=== PATIENT | female | born 1985 | race Caucasian/White ===

== ENCOUNTER 2016-06-11 00:07 | Inpatient (IN) | payer OTHER ==
[~2016-06-11] VITALS: Ht 167.6 cm; Wt 85.7 kg
[~2016-06-11 00:07] MED LIST: CHOL100045 PO; FERR-83 PO; PREN1TAB80 PO
[2016-06-11] MEDS ORDERED: Lactated Ringer's 1,000 ML IV PRN ×2 (11:54→13:06)
[2016-06-11] MEDS ORDERED: Methylergonovine 0.2 mg/mL Inj IM PRN ×3 (11:55→22:35)
[2016-06-11] MEDS ORDERED: Sodium Chloride LOK Flush 10 mL Syringe IVFLUSH PRN ×2 (11:55→13:10)
[2016-06-11] MEDS ORDERED: Oxytocin 10 Unit/mL Inj IM PRN ×3 (11:55→22:35)
[2016-06-11] MEDS ORDERED: Oxytocin 30 Units/500 mL LR 30 UNITS in IV Premix 1 EACH IV PRN ×2 (11:55→13:10)
[2016-06-11] MEDS ORDERED: Hemorrhage Kit, Post Partum XX ONE ×3 (11:55→22:35)
[2016-06-11] MEDS ORDERED: Carboprost 250 mCg/mL Inj IM PRN ×3 (11:55→22:35)
[2016-06-11] MEDS: Lactated Ringer's 1,000 ML IV SCH ×2 (12:38→17:44)
[2016-06-11 13:03] LABS: Mean Corpuscular Hemoglobin 32.7 pg (27.0-35.0); Mean Corpuscular Volume 96.9 fL (81-100)
[2016-06-11] MEDS ORDERED: Penicillin G K Inj 5,000,000 UNITS in Dextrose 5% Minibag Plus 100 ML IV ONE (13:10)
[2016-06-11] MEDS ORDERED: Vancomycin Inj 1,000 MG in IV Premix 1 EACH IV SCH (17:00)
[2016-06-11] MEDS ORDERED: fentaNYL-PF 50 mCg/mL 2 mL Inj ONE (17:35)
[2016-06-11] MEDS ORDERED: fentaNYL 2 mCg/mL-Bupiv 0.125% 100 ML EPIDURAL SCH (17:45)
[2016-06-11] MEDS ORDERED: Atropine 1 mg/10 mL (Code) Syringe IVPUSH PRN (17:45)
[2016-06-11] MEDS ORDERED: EPHEDrine Sulfate 50 mg/mL Inj IVPUSH PRN (17:45)
[2016-06-11] MEDS ORDERED: Ondansetron 2 mg/mL 2 mL Inj IVPUSH PRN (17:45)
[2016-06-11] MEDS ORDERED: Lactated Ringer's 500 ML IV ONE (17:45)
[2016-06-11] MEDS ORDERED: Lactated Ringer's 1,000 ML IV SCH (17:45)
--- NOTE | 2016-06-11 18:58 | HP ---
[address] [address] HISTORY AND PHYSICAL PATIENT: DEVORAH PRUETT : 1985 MR#: [id number] ADMIT: 06/11/2016 JOB ID: [id number] DATE: 06/11/2016 HISTORY OF PRESENT ILLNESS: This is a 31-year-old female, 2, para 1. She is at 39 weeks . She came in this morning for scheduled elective induction of labor. Today, she is 39 weeks plus 5 days. She started care in the first trimester and transferred to [facility] at 20 weeks. Her labs showed that she is Rh positive. Varicella is not available. Rubella immune, RPR negative, HBsAg negative, HIV negative. Her hemoglobin A1c 5.3. Chlamydia, gonorrhea negative. Her GCT was 92. She is GBS positive. This is her 2nd IVF . Her first one was about [address] Judy Garcia, with 9 pound 14 ounce baby at 41 weeks' . Patient claims there was 3rd degree laceration. She requested to have early induction for this . This is also an IVF . ALLERGIES: Patient has no know drug allergies. PAST MEDICAL HISTORY: She past medical history post. PAST SURGICAL HISTORY: She had gastric bypass. She had a gallbladder removal. OBSTETRICAL HISTORY: She has normal vaginal delivery in 2011. GYNECOLOGIC HISTORY: Not complicated. SOCIAL HISTORY: She declined smoking, drinking alcohol, or drug usage. PHYSICAL EXAMINATION: She is afebrile. Her vitals in normal range. Cardiac: RR. No murmur. Pulmonary: Bilaterally clear. Abdomen is soft, . Nontender uterus. Extremities nontender. Her cervix was examined at triage, and it was noted at 3-4 cm dilated, 30% effaced, and -2, soft. heart tracing category one. ASSESSMENT AND PLAN: A 31-year-old female, 2, para 1, second in vitro fertilization . History of large baby at 41 weeks. Desired for elective induction. 1. Will start Pitocin induction. 2. The patient can get epidural or IV medication for pain. 3. We will start her on penicillin for GBS positive status. 4. Expect vaginal delivery.
--- NOTE | 2016-06-11 19:05 | PCM.HPANE ---
Patient Data Date of Service: Jun 11, 2016 Surgeon Admitting Provider:Lisa Lancaster MD Attending Provider:Lisa Lancaster MD Primary Care Physician:Pam Other Provider:Wyatt Joyner Anesthesia Reason for Visit Induction INDUCTION Ht/WT & BMI Height (Centimeters): 167 Weight (Kilograms): 85.7 Body Mass Index 30.5 Allergies Coded Allergies: penicillin G (Verified Allergy, Unknown, Rash, 06/11/16) Diabetes History Hx Diabetes?: No MRSA MRSA: No Medications Hypertension Medication: No Home Meds Incl Beta Jovita: No Reported Medications Ferrous Sulfate 325 Mg [id number] Mg PO DAILY 30 Days Ref 0 04/06/14 Cholecalciferol (Vitamin D3) (Vitamin D)1,000 Unit Capsule1,000 Unit PO DAILY # 1 BOTTLE Ref 0 04/06/14 Vits W-Ca,Fe,FA(<1Mg) ( Vitamins)1 Each Tablet1 Each PO DAILY 04/06/14 History History of ENT Problems?: No Hx of Heart Problems?: No Hx of Respiratory Problem?: No Hx Neurologic Problems?: No Hx of GI Problems?: No Hx of Problems?: No Female Hx: Positive for:: Currently Hx Musculoskeletal Problems?: No Hx of Psycho/Social Problems?: No Hx Surgeries?: Yes (no problems) Hx Any Other Health Problems?: No Hx Diabetes: No Hx Alcohol Use: NoHx Substance Use: No Smoking Status: Never Smoker Have You Smoked inLast 12 mo: No Stop/Bang Treated for Sleep Apnea?: No Do You Have a CPAP Machine?: No SHANELL Risk Assessment: Low Risk, <3 Yes Risk Assessment Category Category 1A: Patient has history of documented sleep apnea, and HAS NOT received any narcotic, sedative or anesthesia administration during this stay. Category 1B: Patient has history of documented sleep apnea, and HAS received any narcotic , sedative or anesthesia administration during this stay Category 2: Patient has SUSPECTED Obstructive Sleep Apnea, and HAS received any narcotic , sedative or anesthesia administration during this stay. Category 3: Patient has SUSPECTED Obstructive Sleep Apnea and HAS NOT received narcotic, sedative or anesthesia administration during this stay. Category 4: Outpatient in Procedural Areas with known sleep apnea or who screen positive for High Risk via the STOP/BANG questionnaire. Exam Exam Vital Signs Vitals reviewed, documented on anesthesia record General Appearance: Alert, Oriented X3, Cooperative HEENT/AIRWAY: MP 1, Neck Movement (Full), Mouth Opening (Wide) Lungs: Clear to Auscultation, Normal Air Movement Heart: Regular Rate/Rhythm, Normal S1, Normal S2 Meds/Labs/Diagnostics Admission Meds Current Medications Lactated Ringer's 1,000 ml @ 125 mls/hr Q8H IV Last administered on 06/11/16 17:44; Start 06/11/16 at 11:54 Penicillin G Potassium/ Dextrose/Water (Pfizerpen Inj/ D5W Minibag Plus) 100 ml @ 240 mls/hr ONCE ONCE IV Last administered on 06/11/16 14:37; Start at 13:10; Stop 06/11/16 at 13:34; Status DC Diphenhydramine HCl (Benadryl Inj) 50 mg STK-MED ONCE .ROUTE Last administered on 06/11/16 15:19; Start 06/11/16 at 15:09; Stop 06/11/16 at 15:10; Status DC Fentanyl Citrate (Sublimaze Inj) 100 mcg STK-MED ONCE .ROUTE Last administered on 06/11/16 17:44; Start 06/11/16 at 17:35; Stop 06/11/16 at 17:36; Status DC Labs Test 06/11/16 12:50 White Blood Count 11.5th/mm3 (3.8-10.1) Red Blood Count 4.13mil/mm3 (3.90-5.20) Hemoglobin 13.5g/dL (12.0-15.6) Hematocrit 40.0% (35.0-46.0) Mean Corpuscular Volume 96.9fL (81-100) Mean Corpuscular Hemoglobin 32.7pg (27.0-35.0) Mean Corpuscular Hemoglobin Concent 33.8% (32.0-37.0) Red Cell Distribution Width 12.6% (12.3-15.4) Platelet Count 234bil/L (150-400) Plan Impression Patient chart reviewed, patient interviewed and anesthestic plan with risks, benefits, and alternatives discussed, and informed consent obtained. NPO Status: Full ASA Physical Status: ASA2 Mod Systemic Disease Anesthetic Plan: Epidural Bene/Risks/Altern/Consents: Yes HP Complete Prior to Induction: Yes Willy Coronado MD Jun 11, 2016 17:46
[2016-06-11] MEDS ORDERED: Penicillin G K Inj 3,000,000 UNITS in IV Premix 1 EACH IV SCH (20:30)
[2016-06-11] MEDS ORDERED: Benzocaine (Dermoplast) 20% 60 Gm Spray TOPICAL PRN (22:35)
[2016-06-11] MEDS ORDERED: Witch Hazel-Glycerin Pads TOPICAL PRN (22:35)
[2016-06-11] MEDS ORDERED: LANOlin HPA 7 Gm Ointment TOPICAL PRN (22:35)
--- NOTE | 2016-06-11 23:55 | OP ---
[address] [address] OPERATIVE REPORT PATIENT: DEVORAH PRUETT : 1985 MR#: [id number] ADMIT: 06/11/2016 JOB ID: [id number] DATE OF SURGERY: 06/11/2016 SURGEON: Meron Malone MD PREOPERATIVE DIAGNOSIS(ES): POSTOPERATIVE DIAGNOSIS(ES): The patient is a 31-year-old female. She is para 2 now. She was admitted to [facility] for induction of labor. This is an the direction induction at 39+ weeks for history of large baby at 41 weeks. After she was admitted, she was noted to be 3-4 cm dilated, 30% effaced, -3 station. Antibiotics was started for GBS positive status and she has allergic reaction to PENICILLIN and it was switched to vancomycin. She got her 1st dose of vancomycin around 4 o'clock. She had regular contractions after induction started with Pitocin. AROM was performed at around 6 o'clock. At that time, she was 4 cm dilated, 80% effaced, and -2 station. AROM showed there is clear amniotic fluid. She also got epidural for pain before the AROM. Her labor pain was well controlled. After those, her labor has gradually progressed to 6 cm dilated and quickly progressed to full dilation, and I was informed at 10 o'clock that the patient was fully dilated and had the feeling of pelvic pressure. When I walked into the room and examined the patient, she was fully dilated at +1 station with good effort and good descent with pushing. With four contractions, the baby was pushed out and delivered at an CURTIS position. The shoulder and chest delivered without difficulty. The infant was placed on mother's chest. There has spontaneous cry. The delayed cord clamping was performed when the pulsation disappeared. Then regular cord blood was collected and then the placenta delivered spontaneously completely and examined with three-vessel cord. After the placenta delivered, the uterus is well contracted. The perineum examined with no laceration. The patient tolerated the delivery well. All instrument, needles, laps and gauzes counted correct twice. The EBL during the delivery was 100 cc. The score was 9 and 9. This is a female , and the weight was not available at dictation.
--- NOTE | 2016-06-12 05:38 | PCM.ANEP1 ---
Post Anesthesia Phase 1 PACU Phase 1 Assessment Date of Service: Jun 11, 2016 Vital Signs See OB records Anesthetic Administered: Epidural Level of Alertness: Sleepy, easy to arouse GARLAND's with Equal Strength: Yes Pain: No Nausea or Vomiting: No Oxygen Delivery: Room Air Lungs: Normal Air Movement Willy Coronado MD Jun 12, 2016 05:38
--- NOTE | 2016-06-12 05:39 | PCM.ANEP2 ---
Post Anesthesia Evaluation ASA/CMS Post Anesthesia Date of Service: Jun 12, 2016 VS in Patient's Normal Range?: Yes Resp Stable; Airway Patent?: Yes CV Function & Hydration Stable: Yes Mental Status Recovered?: Yes Pain control Satisfactory?: Yes N/V Control Satisfactory?: Yes Willy Coronado MD Jun 12, 2016 05:39
[2016-06-12] MEDS: Lactated Ringer's 1,000 ML IV SCH ×7 (06:34→22:34)
[2016-06-12 07:03] LABS: Mean Corpuscular Hemoglobin 32.9 pg (27.0-35.0); Mean Corpuscular Volume 97.9 fL (81-100)
--- NOTE | 2016-06-12 07:09 | PCM.PNOBPP ---
Subjective Date of Service Jun 12, 2016 Post : Spontaneous Vaginal Delivery Visit History This is a 31-year-old female, 2, para 2. She was admitted yesterday, at 39 weeks and 5 days gestational age for scheduled elective induction of labor. She started care in the first trimester and transferred to [facility] at 20 weeks.This is her 2nd IVF . Her first one was about [address] Judy Garcia, with 9 pound 14 ounce baby at 41 weeks' . Patient claims there was 3rd degree laceration. She requested to have early induction for this . She has received epidural for pain. She has received Penicillin IV for GBS positive status. She had at 2220 last night. She delivered a female infant, 7 lb 3 oz with Apgars 9/9. Subjective This is post day #1. Patient is recovering well. She is tolerating oral intake. She is ambulating without difficulties. She is voiding without problems. She is not passing flatus yet. her pain is in her perineum and is 7/10. She takes oral Ibuprofen 600 mg q6h. She is without problems. Lochia: Heavy Pain Management: PO pain meds Gastrointestinal: No N/V Postop Activity: Ambulating Independently Labs Her labs showed that she is Rh positive. Varicella is not available. Rubella immune, RPR negative, HBsAg negative, HIV negative. Her hemoglobin A1c 5.3. Chlamydia, gonorrhea negative. Her GCT was 92. She is GBS positive. On the day of induction, her labs were: WBC 11.5, hemoglobin 13.5, hematocrit 40 , platelets 234. Group B Strep Results: Positive Rubella: Immune Labs Laboratory Tests 06/12/16 06:50: Exam Vital Signs Vital Signs Vital Signs Date Time Temp Pulse Resp B/P Pulse Ox O2 Delivery O2 Flow Rate FiO2 06/12/16 05:38 Room Air Vital Signs: VS reviewed, stable Exam Perineum: Intact : Voiding without difficulty Extremities: Normal pulses, No tenderness/swelling, No edema Lungs: Clear to Auscultation, Normal Air Movement Heart: Exam Unremarkable, Regular Rate/Rhythm General: Alert, Oriented X3, Cooperative, No Acute Distress OB Post Assessment/Plan Assessment Patient is 31 year old female s/p Pain Management: Ibuprofen 600 mg q6h PRN pain Pain Evaluation: Adequate Pain Control VTE Mechanical Devices: Intermittant Pneumatic CD Post plan: Continue routine post care Attending Statement The patient was seen and examined and I agree with the history, exam and plan as outlined in the note above. She is doing well this AM, she is meeting her goals but delivered close to midnight and would like to stay until day #2. She is requesting stronger pain medication. Will give [place] for pain. Plan for discharge home tomorrow. Jessica Gore DO Jun 12, 2016 07:09 Lisa Lancaster MD Jun 12, 2016 20:48
[2016-06-12] MEDS: Sodium Chloride LOK Flush 10 mL Syringe IVFLUSH SCH ×3 (08:30→19:00)
[2016-06-12] MEDS: HYDROcodone-APAP 5-325 mg Tablet PO PRN ×2 (16:50→19:33)
[2016-06-13] MEDS: Sodium Chloride LOK Flush 10 mL Syringe IVFLUSH SCH (00:30)
[2016-06-13] MEDS: HYDROcodone-APAP 5-325 mg Tablet PO PRN ×2 (02:42→10:21)
[2016-06-13] MEDS: Lactated Ringer's 1,000 ML IV SCH (03:54)
--- NOTE | 2016-06-13 07:25 | PCM.DIOB ---
Jessica Gore DO 06/13/16 0725: Obstetrical Disch Instruction Date of Service: Jun 13, 2016 Dates of Hospitalization Date of Hospital Admission Jun 11, 2016 at 11:01 Providers Admitting Physician: Lisa Lancaster MD Primary Care Physician: Pam Attending Physician: Lisa Lancaster MD Discharge Diagnosis Discharge Diagnosis 31 year old female s/p Post Operative diagnosis 31 year old female s/p Problems: Diet Discharge Diet: No restrictions Activity Discharge Activity-General: Pelvic Rest for 6 weeks, Be up and about, Balance rest and activity, Activity as energy allows, No lifting >15 pounds for 2 weeks Dressing and Incisional Care Hygiene: May shower Additional Instructions Discharge Instructions 1. Continue your vitamins and iron supplements 2. You will be sent home with the following prescriptions: - Colace 100 mg twice a day as needed for constipation - Ibuprofen 600 mg, take 1 tab every 6 hours as needed for pain - Norco5-325 mg, take 1 tab every 4 hours as needed for pain. Follow Up Plan Follow Up Plan [facility] for visit Call your provider for: Fever or Chills, Shortness of breath, Heavy vaginal bleeding, Heavy bleeding, Epigastric pain, Excessive constipation, Vaginal discomfort, Red painful breasts Rosa Elena Hickman MD 07/13/16 1122: Obstetrical Disch Instruction Attending Statement I saw patient and examined her. I agree with above plan. Jessica Gore DO Jun 13, 2016 07:25 Rosa Elena Hickman MD Jul 13, 2016 11:22
[2016-06-13] MEDS ORDERED: FERR325T6 PO (07:27)
[2016-06-13] MEDS ORDERED: IBUP-1827 PO (07:29)
[2016-06-13] MEDS ORDERED: HYDR-4003 PO (07:30)
[2016-06-13] MEDS ORDERED: DOCU-41 PO (07:31)
--- NOTE | 2016-06-13 07:47 | PCM.DC.OB ---
Obstetrical Discharge Summary Date of Service Jun 13, 2016 Date of hospital admission Jun 11, 2016 at 11:01 Date of Discharge: Jun 13, 2016 Providers Admitting Physician: Lisa Lancaster MD Primary Care Physician: aPm Attending Physician: Lisa Lancaster MD Diagnosis at Time of Discharge 31-year-old female, 2, para 2, s/p at 39 weeks Problems: Brief History and Physical: This is a 31-year-old female, 2, para 2 s/p at 39 weeks, 5 days . She was admitted on 06/11/16 for scheduled elective induction of labor. Her labs showed that she is Rh positive. Varicella is not available. Rubella immune, RPR negative, HBsAg negative, HIV negative. Her hemoglobin A1c 5.3. Chlamydia, gonorrhea negative. Her GCT was 92. She is GBS positive. This is her 2nd IVF . Her first one was about [address] Judy Garcia, with 9 pound 14 ounce baby at 41 weeks' . She has received Penicillin IV for GBS positive status. She had at 2220 last night. She delivered a female , 7 lb 3 oz with Apgars 9/9. Today is post day #2. Patient is recovering well. She is tolerating oral intake. She is ambulating without difficulties. She is voiding without problems. She is passing flatus.Her pain is well controlled with oral pain medications. She is and supplementing with the bottle without problems. Her vitals signs are stable. She is alert and oriented x3, in no acute distress. Her cardiovascular and respiratory exam is unremarkable. Her abdomen is soft and non-tender, her bowel sounds are normoactive. There is no peripheral edema. She denies depression. Hospital Course: 31-year-old female, 2, para 1 admitted to L&D on 06/11/16 at 39w5d for scheduled elective induction of labor. 31-year-old female, 2, para 2, s/p on 06/11/16 at 2220. Female , 7 lb 3 oz with Apgars 9/9. Discharged on day 2, 06/13/16, in a stable condition. Cholecalciferol (Vitamin D3) (Vitamin D) 1,000 Unit Capsule 1,000 UNIT PO DAILY (Reported) Docusate Sodium (Colace) 100 Mg Capsule 100 MG PO BID PRN PRN For Constipation Prescribed by: COLE BRO DO Ferrous Sulfate (Ferrous Sulfate) 325 Mg Tablet 325 MG PO DAILY (Reported) Ferrous Sulfate (Ferrous Sulfate) 325 Mg Tablet.dr 325 MG PO DAILY Prescribed by: COLE BRO DO Hydrocodone-Acetaminophen 5-325 mg (Hydrocodone-Acetaminophen 5-325 mg) 1 Each Tablet 1 TABLET PO Q4H PRN PRN For Pain Prescribed by: COLE BRO DO Ibuprofen (Ibuprofen) 600 Mg Tablet 600 MG PO QID PRN PRN For Pain Prescribed by: COLE BRO DO Vits W-Ca,Fe,FA(<1Mg) ( Vitamins) 1 Each Tablet 1 EACH PO DAILY (Reported) Discharge Medications: Hugo, 5-325 mg PO q4h PRN pain Ibuprofen 600 mg PO q6h PRN pain Docusate 100 mg PO BID PRN constipation Ferrous sulfate 325 mg PO daily Disposition Home Discharge Diet: No restrictions Discharge Activity-General: Pelvic Rest for 6 weeks, Pelvic Rest, Try not to overdue, Be up and about, Balance rest and activity, Activity as pain allows, Activity as energy allows, No lifting >15 pounds for 2 weeks Attending Statement: I saw patient and examined her. I agree with above plan. Cole Bro DO Jun 13, 2016 07:47 Rosa Elena Hickman MD Jul 13, 2016 11:22
[2016-06-13 11:08] VITALS: BP 119/62; PULSE 71; RESP 16
== END 2016-06-13 11:00 | disposition home or self-care (01) | DRG 775 ==
LOC: FBC 11:01
PROVIDERS: ADMIT Obstetrics & Gynecology; ATTEND Obstetrics & Gynecology
PROC: 10E0XZZ Delivery of Products of Conception, External Approach (ICD-10-PCS; principal; 2016-06-11)
PROC: 10907ZC Drainage of Amniotic Fluid, Therapeutic from Products of Conception, Via Natural or Artificial Opening (ICD-10-PCS; 2016-06-11)
PROC: 3E033VJ Introduction of Other Hormone into Peripheral Vein, Percutaneous Approach (ICD-10-PCS; 2016-06-11)
DX: O80 Encounter for full-term uncomplicated delivery (principal); Z3A.39 39 weeks gestation of pregnancy; Z37.0 Single live birth